=== PATIENT | male | born 1970 | race Hispanic/Latino ===

== ENCOUNTER 2023-01-27 16:02 | Emergency (ER) | payer SELFPAY ==
[~2023-01-27] VITALS: Ht 170.2 cm; Wt 81.6 kg
[~2023-01-27 16:02] MED LIST: NAPROXEN250 MG PO; NEURONTIN300 MG PO
[2023-01-27 16:50] VITALS: O2SAT 100
[2023-01-27] MEDS ORDERED: LIDOCAINE 4% PATCH TP STA (16:54)
[2023-01-27] MEDS ORDERED: DEXAMETHASONE 4 MG TAB PO STA (16:54)
[2023-01-27] MEDS ORDERED: KETOROLAC TROMETHAMINE 30 MG/ML VIAL IM STA (16:54)
[2023-01-27] MEDS ORDERED: KETOROLAC TROMETHAMINE 60 MG/2 ML VIAL ONE (16:58)
[2023-01-27] MEDS ORDERED: ACETAMINOPHEN 325 MG TAB ONE (16:58)
[2023-01-27] MEDS ORDERED: DEXAMETHASONE SOD PHOS 10 MG/1 ML VIAL ONE (16:59)
[2023-01-27] MEDS ORDERED: LIDOCAINE 4% PATCH TP ONE (16:59)
[2023-01-27] MEDS ORDERED: ACETAMINOPHEN 325 MG TAB PO ONE (17:00)
[2023-01-27] MEDS ORDERED: DEXAMETHASONE SOD PHOS 10 MG/1 ML VIAL IM ONE (17:15)
[2023-01-27] MEDS ORDERED: NAPROXEN250 MG PO (18:09)
[2023-01-27] MEDS ORDERED: NEURONTIN300 MG PO (18:09)
== END 2023-01-27 18:20 | disposition home or self-care (01) ==
LOC: ER 16:32
DX: M54.41 Lumbago with sciatica, right side (principal)
CPT/HCPCS: 99283; J1100; J1885